=== PATIENT | female | born 1975 | race African-American/Black ===

== ENCOUNTER 2020-02-14 21:28 | Emergency (ER) | payer OTHER ==
[~2020-02-14] VITALS: Ht 170.2 cm; Wt 68.2 kg
--- NOTE | 2020-02-14 23:37 | PHYS DOC ---
Past Medical History Past Medical History: No Pertinent History Past Surgical History: Hysterectomy Smoking Status: Never Smoker Alcohol Use: None General Adult EDM: Chief Complaint: SHORTNESS OF BREATH HPI: HPI: Patient is a 44 year old female who presents with complaints of persistent COVID infection. Patient reports that about a week ago she began to have body aches chills, cough, sore throat. She denies any change in smell or taste. She also denies any nausea, vomiting or diarrhea. Patient reports she has had adequate urinary output and adequate p.o. intake. Patient is concerned that she is not improving but reports that she is things are getting any worse either. She denied any melena or hematochezia, rashes or change in neurological system. She does complain of a headache that is bifrontal, mild at this time but it see ms to vary. She also complained of chest wall tenderness that is reproduced by coughing or movement and resolves if she is still. She complains of overall generalized fatigue. Review of Systems: Review of Systems: Constitutional: See HPI [] Eyes: Denies change in visual acuity. [] HENT: See HPI [] Respiratory: See HPI. [] Cardiovascular: Denies chest pain or edema. [] GI: Denies abdominal pain, nausea, vomiting, bloody stools or diarrhea. [] : Denies dysuria. [] Musculoskeletal: Denies back pain or joint pain. [] Integument: Denies rash. [] Neurologic: Denies headache, focal weakness or sensory changes. [] Endocrine: Denies polyuria or polydipsia. [] Lymphatic: Denies swollen glands. [] Psychiatric: Denies depression or anxiety. [] Heart Score: Risk Factors: Risk Factors: DM, Current or recent (<one month) smoker, HTN, HLP, family history of CAD, obesity. Risk Scores: Score 0 - 3: 2.5% MACE over next 6 weeks - Discharge Home Score 4 - 6: 20.3% MACE over next 6 weeks - Admit for Clinical Observation Score 7 - 10: 72.7% MACE over next 6 weeks - Early Invasive Strategies Allergies: Allergies: Allergies Coded Allergies Type Severity Reaction Last Updated Verified morphine Allergy Intermediate "itching" 02/14/20 Yes Physical Exam: PE: Constitutional: Well developed, well nourished, no acute distress, non-toxic appearance. [] HENT: Normocephalic, atraumatic, bilateral external ears normal, oropharynx moist, no oral exudates, nose normal. [] Eyes: PERRLA, EOMI, conjunctiva normal, no discharge. [] Neck: Normal range of motion, no tenderness, supple, no stridor. [] Cardiovascular:Heart rate regular rhythm, no murmur [] Lungs & Thorax: Bilateral breath sounds clear to auscultation, no respiratory distress [] Abdomen: Bowel sounds normal, soft, no tenderness, no masses, no pulsatile masses. [] Skin: Warm, dry, no erythema, no rash. [] Back: No tenderness, no CVA tenderness. [] Extremities: No tenderness, no cyanosis, no clubbing, ROM intact, no edema. [] Neurologic: Alert and oriented X 3, normal motor function, normal sensory function, no focal deficits noted. [] Psychologic: Affect normal, judgement normal, mood normal. [] Current Patient Data: Vital Signs: Vital Signs Date Time Temp Pulse Resp B/P (MAP) Pulse Ox O2 Delivery O2 Flow Rate FiO2 02/14/20 21:28 98.6 78 18 129/65 (86) 100 Room Air 98.6 EKG: EKG: Heart rate 79 bpm normal sinus rhythm, normal intervals, normal axes, borderline ECG [] Radiology/Procedures: Radiology/Procedures: Chest x-ray AP interpretation by me is no acute intra-thoracic cardiopulmonary process [] Course & Med Decision Making: Course & Med Decision Making Pertinent Labs and Imaging studies reviewed. (See chart for details) 0151-the patient is a pleasant female who is reevaluated. At this time there is no evidence of an exigent medical or surgical problem. Patient's cough and persistent fatigue is secondary to COVID-19 will resolve on its own. No specific treatment is indicated at this time. I discussed this with the patient. I discussed reasons to return, treatment plan and need for follow-up. [] Jerry Disclaimer: Jerry Disclaimer: This electronic medical record was generated, in whole or in part, using a voice recognition dictation system. Departure Departure Impression: Primary Impression: COVID-19 virus detected Additional Impressions: Acute bronchitis Qualified Codes: J20.8 - Acute bronchitis due to other specified organisms Cough headache syndrome Disposition: HOME, SELF-CARE Condition: GOOD Referrals: MILAN HERRERA (PCP) Scripts Albuterol Sulfate (VENTOLIN HFA INHALER) 18 Gm Hfa.aer.ad 2 PUFF INH Q4HRS for FOR ASTHMA, #1 INHALER 0 Refills 2 puffs with spacer, every 4 hours as needed waiting 15 minutes between each puff and using a spacer. Prov: JENN ELDER MD 02/15/20 Justicifation of Admission Dx: Justifications for Admission: Justification of Admission Dx: N/A JENN ELDER MD Feb 14, 2020 23:37
[2020-02-14] MEDS ORDERED: IV NORMAL SALINE 500ML BAG 500 ML IV ONE (23:45)
[2020-02-14] MEDS ORDERED: KETOROLAC 30 MG/ML VIAL. IVP ONE (23:45)
[2020-02-14] MEDS ORDERED: ALBUTEROL SULFATE 2.5 MG/3 ML NEBU. NEB ONE (23:45)
[2020-02-15 01:25] LABS: BASO # 0.1 x10^3/uL (0.0-0.2); BASO % 1 % (0-3); EOS # 0.1 x10^3/uL (0.0-0.7); EOS % 1 % (0-3); HEMOGLOBIN 13.9 g/dL (12.0-15.5); LYMPH # 2.4 x10^3/uL (1.0-4.8); LYMPH % 21 % (24-48); MEAN CORPUSCULAR HEMOGLOBIN 29 pg (25-35); MEAN CORPUSCULAR HGB CONC 32 g/dL (31-37); MEAN CORPUSCULAR VOLUME 91 fL (79-100); MONO # 0.8 x10^3/uL (0.0-1.1); MONO % 7 % (0-9); NEUT # 7.7 x10^3/uL (1.8-7.7); NEUT % 70 % (31-73); PLATELET COUNT 165 x10^3/uL (140-400); RED BLOOD COUNT 4.75 x10^6/uL (3.50-5.40); RED CELL DISTRIBUTION WIDTH 14.3 % (11.5-14.5)
[2020-02-15 01:34] LABS: CALCIUM 8.9 mg/dL (8.5-10.1); CREATININE 0.8 mg/dL (0.6-1.0); GFR 94.7; POTASSIUM 3.5 mmol/L (3.5-5.1)
[2020-02-15] MEDS ORDERED: VENTOLIN HFA18 GM INH (01:58)
[2020-02-15 02:12] VITALS: BP 110/72
--- NOTE | 2020-02-15 07:49 | RAD ---
CHEST AP ONLY Clinical Indication: Reason: Cough COVID POSITIVE / Comparison: None. Findings: The cardiomediastinal silhouette is normal. Lungs are clear. There is no pneumothorax. No pleural effusion is appreciated. No acute bone abnormality. IMPRESSION: No acute cardiopulmonary process. Electronically signed by: Kostas Agudelo MD (02/15/2020 7:46 AM) [id number]
--- NOTE | 2020-02-18 09:26 | EKG ---
[facility] [address] [place] [address] Test Date: 2020-02-14 Test Time: 21:41:38 Pat Name: ANETTE STEWART Department: Room: Gender: F [employer] Ref[employer]: : [id number] Requested By: JENN ELDER Order Number: [id number] Reading MD: Pineda Rm MD Measurements Intervals [place] Rate: 79 P: 47 PA: 184 QRS: 64 QRSD: 72 T: 14 QT: 354 QTc: 412 Interpretive Statements SINUS RHYTHM Electronically Signed On 02-20-2020 13:51:58 CDT by Pineda Rm MD
== END 2020-02-15 02:15 | disposition home or self-care (01) ==
LOC: ER 21:28
DX: U07.1 COVID-19 (principal); J20.8 Acute bronchitis due to other specified organisms; R05 Cough; R51 Headache; Z88.6 Allergy status to analgesic agent; Z90.710 Acquired absence of both cervix and uterus
CPT/HCPCS: 36415; 71045; 80048; 85025; 94640; 96361; 96374; 99285; J1885; J7040; 93005; J7613

== ENCOUNTER 2021-03-17 18:30 | Emergency (ER) | payer OTHER ==
[~2021-03-17] VITALS: Ht 157.5 cm; Wt 75.0 kg
[~2021-03-17 18:30] MED LIST: VENTOLIN HFA18 GM INH
[2021-03-17] MEDS ORDERED: methylPREDNISolone SOD SUCC PF 125 MG/2 ML VIAL. IV ONE (18:45)
[2021-03-17] MEDS ORDERED: KETOROLAC 15 MG/ML VIAL. IVP ONE (18:45)
[2021-03-17] MEDS ORDERED: FAMOTIDINE 20 MG/2 ML VIAL IVP ONE (18:45)
--- NOTE | 2021-03-17 18:47 | ED.ADGEN ---
Past Medical History Past Medical History: No Pertinent History Past Surgical History: Hysterectomy Smoking Status: Never Smoker Alcohol Use: None General Adult HPI: HPI: Patient is a 45 year old female brought in by EMS after a bee sting to her left second finger. 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 Did not have her EpiPen with her. Patient states she has had swelling of her throat but has never had to be intubated. Patient was given 50 mg Benadryl by EMS and says she started to feel better. Patient denies any pruritic rash, throat closing or tongue swelling. Patient states she just feels "numbness" around her central face. States she otherwise been well. No other past medical history. Past surgical history hysterectomy Review of Systems: Review of Systems: All other systems within normal limits except for as noted in the HPI Current Medications: Current Medications Medications (Trade) Dose Ordered Sig/Lola Start Time Stop Time Status Last Admin Dose Admin Famotidine (Pepcid Vial) 20 mg 1X ONCE 03/17/21 18:45 03/17/21 18:51 DC 03/17/21 19:33 20 MG Ketorolac Tromethamine (Toradol 15mg Vial) 15 mg 1X ONCE 03/17/21 18:45 03/17/21 18:51 DC 03/17/21 19:33 15 MG Methylprednisolone Sodium Succinate (SOLU-Medrol 125MG VIAL) 125 mg 1X ONCE 03/17/21 18:45 03/17/21 18:51 DC 03/17/21 19:32 125 MG Allergies: Allergies: Allergies Coded Allergies Type Severity Reaction Last Updated Verified morphine Allergy Intermediate "itching" 02/14/20 Yes Physical Exam: PE: Constitutional: Well developed, well nourished, no acute distress, non-toxic appearance. [] HENT: Normocephalic, atraumatic, bilateral external ears normal, nose normal. No lip or tongue swelling, no edema and posterior pharynx [] Eyes: PERRLA, conjunctiva normal, no discharge. [] Neck: No rigidity, supple, no stridor. [] Cardiovascular: Regular rate and rhythm, brisk cap refill [] Lungs & Thorax: Non labored symmetric respirations, no tachypnea or respiratory distress [] Abdomen: Soft, nondistended. Skin: Warm, dry, no erythema, no rash. [] Back: Unremarkable Extremities: No deformities, range of motion grossly intact, no lower extremity edema [] Neurologic: Alert and oriented X 3, no focal deficits noted. [] Psychologic: Affect normal, judgement normal, mood normal. [] Current Patient Data: Vital Signs: Vital Signs Date Time Temp Pulse Resp B/P (MAP) Pulse Ox O2 Delivery O2 Flow Rate FiO2 03/17/21 18:30 98.4 80 20 115/65 (82) 99 Room Air 98.4 EKG: EKG: [] Heart Score: C/O Chest Pain: No Risk Factors: Risk Factors: DM, Current or recent (<one month) smoker, HTN, HLP, family history of CAD, obesity. Risk Scores: Score 0 - 3: 2.5% MACE over next 6 weeks - Discharge Home Score 4 - 6: 20.3% MACE over next 6 weeks - Admit for Clinical Observation Score 7 - 10: 72.7% MACE over next 6 weeks - Early Invasive Strategies Radiology/Procedures: Radiology/Procedures: [] Course & Med Decision Making: Course & Med Decision Making Patient is urgent emergency department after medication states symptoms are improving. States she does not have any pets at home, will discharge with Rx. States she no longer has any tingling in her face. Still complaining of pain in her finger nearby. Patient notes her last tetanus vaccine was about 2 to 3 years ago. Jerry Disclaimer: Jerry Disclaimer: This electronic medical record was generated, in whole or in part, using a voice recognition dictation system. Departure Departure Impression: Primary Impression: Bee sting reaction Disposition: 01 HOME / SELF CARE / HOMELESS Condition: STABLE Referrals: MILAN HERRERA (PCP) Patient Instructions: Bee, Wasp, or Hornet Sting Scripts Diphenhydramine Hcl (DIPHENHYDRAMINE HCL) 25 Mg Tablet 1-2 TAB PO QHS for allergy symptoms for 10 Days, #30 TAB 0 Refills Prov: SENTHIL GIRALDO MD 03/17/21 Prednisone (PREDNISONE) 50 Mg Tablet 1 TAB PO DAILY for steroid for 5 Days, #5 TAB Prov: SENTHIL GIRALDO MD 03/17/21 Epinephrine (EPIPEN 2-BYRON) 0.3 Mg/0.3 Ml Auto.injct 1 SYR IM ONCE for 1 Day, #1 PACKET 0 Refills Prov: SENTHIL GIRALDO MD 03/17/21 Famotidine (FAMOTIDINE) 40 Mg Tablet 40 MG PO HS for antacid for 10 Days, #10 TAB Prov: SENTHIL GIRALDO MD 03/17/21 SENTHIL GIRALDO MD Mar 17, 2021 18:47
[2021-03-17] MEDS ORDERED: HYDROcodone/APAP 5/325MG 1 TAB TABLET PO ONE (20:00)
[2021-03-17] MEDS ORDERED: DIPH25TA24 PO (20:05)
[2021-03-17] MEDS ORDERED: EPIPEN 2-P0.3 MG/0.3 IM (20:05)
[2021-03-17] MEDS ORDERED: FAMO40TA4 PO (20:05)
[2021-03-17] MEDS ORDERED: PRED50TA PO (20:05)
[2021-03-17 20:14] VITALS: BP 112/73
== END 2021-03-17 20:34 | disposition home or self-care (01) ==
LOC: ER 18:30
DX: T63.441A Toxic effect of venom of bees, accidental (unintentional), initial encounter (principal); R22.1 Localized swelling, mass and lump, neck; Z88.5 Allergy status to narcotic agent; Y92.89 Other specified places as the place of occurrence of the external cause
CPT/HCPCS: 96374; 96375; 99284; J1885; J2930; J3490